=== PATIENT | female | born 1970 | race Native Hawaiian/Other Pacific Islander ===

== ENCOUNTER 2017-11-25 02:12 | Emergency (ER) | payer OTHER ==
[2017-11-25 02:40] VITALS: TEMP 97.9
--- NOTE | 2017-11-25 02:40 | ED PDOC ---
HPI: Skin/Bite Injury Time Seen by Provider: 11/25/17 02:37 Chief Complaint (Nursing): Allergic Reaction Chief Complaint (Provider): rash History Per: Patient Additional Complaint(s): 47-year-old female presents with urticaria rash to entire body ongoing for 2 weeks. Patient was seen by locomotive supervisor last week and started on Medrol Dosepak but has not noticed improvement in symptoms. Patient took liquid dose of Benadryl this evening prior to arrival to ED if thinks that this may have helped somewhat. She denies any shortness of breath or throat discomfort. No fever or chills. Patient states that several months ago she limited gluten- free diet and then recently reincorporated which may be the cause of the reaction. She also changed her longitude detergent recently. Patient has not had allergy testing as of yet. Past Medical History Reviewed: Historical Data, Nursing Documentation, Vital Signs Vital Signs: Last Vital Signs Temp 97.9 F 11/25/17 02:29 Pulse 68 11/25/17 02:29 Resp 17 11/25/17 02:29 BP 146/84 11/25/17 02:29 Pulse Ox 100 11/25/17 02:29 - Medical History PMH: No Chronic Diseases - Family History Family History: States: No Known Family Hx - Living Arrangements Living Arrangements: With Family - Social History Current smoker - smoking cessation education provided: No Alcohol: None Drugs: Denies - Home Medications Home Medications: Ambulatory Orders Medication Instructions Recorded predniSONE [predniSONE Tab] 10 mg PO ASDIR #43 tab 11/25/17 - Allergies Allergies/Adverse Reactions: Allergies Allergy/AdvReac Type Severity Reaction Status Date / Time Penicillins Allergy Mild hives Verified 11/25/17 02:41 Review of Systems ROS Statement: Except As Marked, All Systems Reviewed And Found Negative Constitutional: Negative for: Fever Cardiovascular: Negative for: Chest Pain Respiratory: Negative for: Shortness of Breath Skin: Positive for: Rash Physical Exam - Reviewed Nursing Documentation Reviewed: Yes Vital Signs Reviewed: Yes - Physical Exam Appears: Positive for: Well, Non-toxic, No Acute Distress Skin: Positive for: Rash (Urticarial lesions noted to entire body) Eye Exam: Positive for: Normal appearance Cardiovascular/Chest: Positive for: Regular Rate, Rhythm Respiratory: Positive for: Normal Breath Sounds Extremity: Positive for: Normal ROM Neurologic/Psych: Positive for: Alert, Oriented - ECG O2 Sat by Pulse Oximetry: 100 Pulse Ox Interpretation: Normal Medical Decision Making Medical Decision Making: Impression: Urticaria Plan: 25 mg IM benadryl 125 mg Im solumedrol Patient was advised to stop taking Medrol Dosepak and was given higher dose of prednisone taper. She was advised to follow-up with locomotive supervisor or lidar scientist for allergy testing. Disposition - Clinical Impression Clinical Impression: Urticaria - Patient ED Disposition Is Patient to be Admitted: No Counseled Patient/Family Regarding: Diagnosis, Need For Followup, Rx Given - Disposition Referrals: [facility] [Outside] Disposition: Routine/Home Disposition Time: 02:59 Condition: STABLE Additional Instructions: Stop taking Medrol Dosepak. Continue with new prescription. Take 2 tablets of Benadryl [id number] every 6 hours. Each tablets 25 mg. Follow-up with locomotive supervisor or lidar scientist for allergy testing. Prescriptions: predniSONE [predniSONE Tab] 10 mg PO ASDIR #43 tab Instructions: Sariah (DC) Forms: [facility] (Tai[place]ese)
[2017-11-25] MEDS ORDERED: DiphenhydrAMINE 50 mg/ml Inj IM STA ×2 (02:56→02:58)
[2017-11-25 03:24] VITALS: BP 119/67; PULSE 74; RESP 20; O2SAT 99
== END 2017-11-25 03:28 | disposition home or self-care (01) ==
LOC: H.ER 02:12
DX: L50.0 Allergic urticaria (principal); Z88.0 Allergy status to penicillin
CPT/HCPCS: 96372; 99283; J2930